=== PATIENT | male | born 1990 | race African-American/Black ===

== ENCOUNTER 2021-10-04 08:00 | Emergency (ER) | payer OTHER ==
[~2021-10-04] VITALS: Ht 172.7 cm; Wt 73.4 kg
[2021-10-04 08:10] VITALS: BP 146/91
[2021-10-04] MEDS ORDERED: ONDA4TAB6 PO (08:59)
[2021-10-04] MEDS ORDERED: ONDANSETRON 4 MG ORAL DISINTEGRATING TAB PO ONE (09:00)
== END 2021-10-04 09:09 | disposition left against medical advice (07) ==
LOC: M ED 08:00
DX: R10.9 Unspecified abdominal pain (principal); R11.2 Nausea with vomiting, unspecified
CPT/HCPCS: 99282; Q0162

== ENCOUNTER 2022-11-01 03:56 | Inpatient (IN) | payer OTHER ==
[~2022-11-01] VITALS: Ht 170.2 cm; Wt 78.8 kg
[~2022-11-01 03:56] MED LIST: ONDA4TAB6 PO
[2022-11-01 04:23] LABS: HEMATOCRIT 43.7 % (42.0-52.0); MEAN CORPUSCULAR HEMOGLOBIN 29.9 pg (27.0-33.0); MEAN CORPUSCULAR HGB CONC 34.3 g/dl (32.0-36.5); MEAN CORPUSCULAR VOLUME 87.2 fl (80.0-96.0); PLATELET COUNT, AUTOMATED 263 10^3/uL (150-450); RED BLOOD COUNT 5.01 10^6/uL (4.30-6.10); WHITE BLOOD COUNT 6.7 10^3/uL (4.0-10.0)
[2022-11-01 04:50] LABS: ETHYL ALCOHOL (ETHANOL) 0.141 % (0.000-0.010)
[2022-11-01 04:52] LABS: ACETAMINOPHEN LEVEL < 2.0 UG/ML (10.0-20.0); SALICYLATE LEVEL < 3.0 MG/DL (<30)
[2022-11-01 04:53] LABS: AMPHETAMINES LEVEL URINE NEGATIVE (NEGATIVE); BARBITURATES URINE NEGATIVE (NEGATIVE); BENZODIAZEPINES URINE NEGATIVE (NEGATIVE)
[2022-11-01 04:54] LABS: CANNABINOIDS URINE NEGATIVE (NEGATIVE); COCAINE METABOLITE URINE NEGATIVE (NEGATIVE); METHADONE URINE NEGATIVE (NEGATIVE); OPIATES URINE NEGATIVE (NEGATIVE); PHENCYCLIDINE URINE NEGATIVE (NEGATIVE)
[2022-11-01 04:59] LABS: ALBUMIN 4.1 G/DL (3.2-5.2); ALKALINE PHOSPHATASE 86 U/L (46-116); ALT/SGPT 48 U/L (7.0-40); AST/SGOT 37 U/L (<34); BILIRUBIN,DIRECT 0.2 MG/DL (<0.4); BILIRUBIN,TOTAL 0.7 MG/DL (0.3-1.2); BLOOD UREA NITROGEN 8 MG/DL (9-23); CALCIUM LEVEL 8.9 MG/DL (8.5-10.1); CARBON DIOXIDE LEVEL 26 MMOL/L (20-31); CHLORIDE LEVEL 106 MMOL/L (98-107); CREATININE FOR GFR 1.08 MG/DL (0.70-1.30); GLOMERULAR FILTRATION RATE > 60.0 (>60); GLUCOSE, FASTING 101 MG/DL (60-100); POTASSIUM SERUM 3.5 MMOL/L (3.5-5.1); SODIUM LEVEL 140 MMOL/L (136-145); THYROID STIMULATING HORMONE 2.381 uIU/ML (0.55-4.78)
[2022-11-01] MEDS: MULTIVITAMINS/MINERALS THERAP 1 TAB PO SCH (09:00)
[2022-11-01] MEDS: NICOTINE 21MG/24HR 1 EA TRANSDERMAL TD SCH (09:00)
[2022-11-01] MEDS: THIAMINE 100 MG TAB PO SCH ×2 (09:00→21:00)
[2022-11-01] MEDS: FOLIC ACID 1MG TAB PO SCH (09:00)
[2022-11-01] MEDS ORDERED: OLANZapine 5 MG TAB PO PRN (12:30)
[2022-11-01] MEDS ORDERED: MAALOX 30 ML SUSP *UDC PO PRN (12:30)
[2022-11-01] MEDS ORDERED: LORazepam 2 MG TAB PO PRN (12:30)
[2022-11-01] MEDS ORDERED: diphenhydrAMINE 25MG CAP PO PRN (12:30)
[2022-11-01] MEDS ORDERED: IBUPROFEN 400MG TAB PO PRN (12:30)
[2022-11-01] MEDS ORDERED: MOM 30ML SUSPENSION UDC PO PRN (12:30)
[2022-11-01] MEDS ORDERED: traZODone 50 MG TAB PO PRN (12:30)
[2022-11-01] MEDS ORDERED: HOME MED LIST COMPLETE! XX SCH (12:55)
[2022-11-01 17:30] VITALS: BP 114/62
[2022-11-01 18:02] VITALS: BP 114/62
[2022-11-01 22:00] VITALS: BP 115/66
[2022-11-02 06:00] VITALS: BP 119/58
[2022-11-02 06:11] VITALS: BP 119/58
[2022-11-02] MEDS: THIAMINE 100 MG TAB PO SCH ×2 (09:00→21:00)
[2022-11-02] MEDS: FOLIC ACID 1MG TAB PO SCH (09:00)
[2022-11-02] MEDS: MULTIVITAMINS/MINERALS THERAP 1 TAB PO SCH (09:00)
[2022-11-02] MEDS: NICOTINE 21MG/24HR 1 EA TRANSDERMAL TD SCH (09:00)
[2022-11-02 14:00] VITALS: BP 124/77
[2022-11-02 18:28] VITALS: BP 124/77
[2022-11-02 21:45] VITALS: BP 120/70
[2022-11-03 06:44] VITALS: BP_SYST 121; BP_DIAS 29; BP_DIAS 59
[2022-11-03 06:45] VITALS: BP 121/59
[2022-11-03] MEDS: NICOTINE 21MG/24HR 1 EA TRANSDERMAL TD SCH (08:50)
[2022-11-03] MEDS: FOLIC ACID 1MG TAB PO SCH (08:50)
[2022-11-03] MEDS: MULTIVITAMINS/MINERALS THERAP 1 TAB PO SCH (08:50)
[2022-11-03] MEDS: THIAMINE 100 MG TAB PO SCH ×2 (08:50→21:00)
[2022-11-03 16:40] VITALS: BP 122/62
[2022-11-04 06:38] VITALS: BP 122/58
[2022-11-04] MEDS: NICOTINE 21MG/24HR 1 EA TRANSDERMAL TD SCH (08:02)
[2022-11-04] MEDS: MULTIVITAMINS/MINERALS THERAP 1 TAB PO SCH (08:02)
[2022-11-04] MEDS: FOLIC ACID 1MG TAB PO SCH (08:02)
[2022-11-04 16:43] VITALS: BP 121/58
[2022-11-04 21:34] VITALS: BP 121/58
[2022-11-05 06:15] VITALS: BP 124/77
[2022-11-05 06:20] VITALS: BP 117/57
[2022-11-05] MEDS: NICOTINE 21MG/24HR 1 EA TRANSDERMAL TD SCH (09:00)
[2022-11-05] MEDS: FOLIC ACID 1MG TAB PO SCH (09:00)
[2022-11-05] MEDS: MULTIVITAMINS/MINERALS THERAP 1 TAB PO SCH (09:00)
== END 2022-11-05 13:18 | disposition home or self-care (01) | DRG 882 ==
LOC: EDBD 03:56 → M ED 03:56 → M ED INP 12:28 → M PSY 17:25
PROVIDERS: ADMIT Student in an Organized Health Care Education/Training Program; ATTEND Psychiatry & Neurology Psychiatry
DX: F43.23 Adjustment disorder with mixed anxiety and depressed mood (principal); F10.94 Alcohol use, unspecified with alcohol-induced mood disorder; R45.851 Suicidal ideations; Z20.822 Contact with and (suspected) exposure to COVID-19; Z63.0 Problems in relationship with spouse or partner; F10.929 Alcohol use, unspecified with intoxication, unspecified; F17.290 Nicotine dependence, other tobacco product, uncomplicated; R74.01 Elevation of levels of liver transaminase levels; Z71.6 Tobacco abuse counseling

== ENCOUNTER 2022-11-19 04:01 | Emergency (ER) | payer OTHER ==
[~2022-11-19] VITALS: Ht 172.7 cm; Wt 72.7 kg
[2022-11-19 04:43] LABS: HEMATOCRIT 42.3 % (42.0-52.0); HEMOGLOBIN 14.1 g/dl (13.5-17.5); MEAN CORPUSCULAR HEMOGLOBIN 29.4 pg (27.0-33.0); MEAN CORPUSCULAR HGB CONC 33.3 g/dl (32.0-36.5); MEAN CORPUSCULAR VOLUME 88.1 fl (80.0-96.0); PLATELET COUNT, AUTOMATED 268 10^3/uL (150-450); WHITE BLOOD COUNT 7.6 10^3/uL (4.0-10.0)
[2022-11-19 05:07] LABS: AMPHETAMINES LEVEL URINE NEGATIVE (NEGATIVE); BARBITURATES URINE NEGATIVE (NEGATIVE); BENZODIAZEPINES URINE NEGATIVE (NEGATIVE); CANNABINOIDS URINE NEGATIVE (NEGATIVE); COCAINE METABOLITE URINE NEGATIVE (NEGATIVE); METHADONE URINE NEGATIVE (NEGATIVE); OPIATES URINE NEGATIVE (NEGATIVE); PHENCYCLIDINE URINE NEGATIVE (NEGATIVE)
[2022-11-19 05:10] LABS: ETHYL ALCOHOL (ETHANOL) 0.061 % (0.000-0.010)
[2022-11-19 05:12] LABS: ACETAMINOPHEN LEVEL < 2.0 UG/ML (10.0-20.0); SALICYLATE LEVEL < 3.0 MG/DL (<30)
[2022-11-19 05:15] LABS: ALKALINE PHOSPHATASE 95 U/L (46-116); ALT/SGPT 32 U/L (7.0-40); AST/SGOT 26 U/L (<34); BILIRUBIN,DIRECT 0.1 MG/DL (<0.4); BILIRUBIN,TOTAL 0.4 MG/DL (0.3-1.2); BLOOD UREA NITROGEN 9 MG/DL (9-23); CALCIUM LEVEL 8.6 MG/DL (8.5-10.1); CARBON DIOXIDE LEVEL 26 MMOL/L (20-31); CHLORIDE LEVEL 109 MMOL/L (98-107); CREATININE FOR GFR 1.09 MG/DL (0.70-1.30); GLOMERULAR FILTRATION RATE > 60.0 (>60); GLUCOSE, FASTING 120 MG/DL (60-100); SODIUM LEVEL 140 MMOL/L (136-145); THYROID STIMULATING HORMONE 1.476 uIU/ML (0.55-4.78); TOTAL PROTEIN 6.8 G/DL (5.7-8.2)
[2022-11-19 09:31] VITALS: BP 132/76
== END 2022-11-19 09:33 | disposition home or self-care (01) ==
LOC: M ED 04:01
DX: F43.9 Reaction to severe stress, unspecified (principal); F43.20 Adjustment disorder, unspecified